=== PATIENT | female | born 1960 | race African-American/Black ===

== ENCOUNTER 2016-12-19 07:47 | Emergency (ER) | payer SELFPAY ==
--- NOTE | 2016-12-19 09:35 | RAD ---
Indication: Left shoulder injury. 3 views of left shoulder demonstrates no fracture. AC joint arthritis is noted. No other bone or joint abnormalities identified. IMPRESSION: AC joint arthritis without fracture.
[2016-12-19 10:04] VITALS: BP 139/98
--- NOTE | 2016-12-19 12:27 | UC ---
Cristian Bustillo Benjamin, scribed for Aby Todd MD on 12/19/16 at 0901 . Shoulder Pain HPI - HPI Summary HPI Summary: 56yo female presents with left shoulder injury on 12/17/16 afternoon trying to reach her left arm across to the right side while at work. Pt reports having pain since yesterday evening. Pt has difficulty moving her left shoulder due to pain. No p/d/w. No other joint pain c/o's. No neck pain. No sob / cp. No abd issues. - History of Current Complaint Chief Complaint: UCUpperExtremity Stated Complaint: SHOULDER COMPLAINT Time Seen by Provider: 12/19/16 08:45 Hx Obtained From: Patient Hx Last Menstrual Period: at least 3 yrs ago ?: No Onset/Duration: Lasting Days, Still Present Timing: Constant Severity Initially: Moderate Severity Currently: Moderate Location Of Pain: Is Discrete @ - left shoulder Character: Throbbing Aggravating Factor(s): Movement, Lifting, Extension, Internal Rotation, External Rotation Alleviating Factor(s): Rest Associated Signs And Symptoms: Positive: Negative Related History: Occupational Injury - at work - Allergies/Home Medications Allergies/Adverse Reactions: Allergies Allergy/AdvReac Type Severity Reaction Status Date / Time No Known Allergies Allergy Verified 12/19/16 08:05 Home Medications: Home Medications Bp Med 1 tab PO DAILY 12/19/16 [History] Water Pill 1 tab PO 12/19/16 [History] PMH/Surg Hx/FS Hx/Imm Hx Previously Healthy: Yes - see hpi Cardiovascular History: Hypertension Respiratory History: Bronchitis - Surgical History Surgical History: None - Family History Known Family History: Positive: Cardiac Disease, Hypertension, Diabetes - Social History Occupation: Employed Full-time Lives: With Family Alcohol Use: Occasionally Substance Use Type: None Smoking Status (MU): Light Every Day Tobacco Smoker Type: Cigarettes Amount Used/How Often: 1 per day Have You Smoked in the Last Year: Yes Review of Systems Constitutional: Other - SEE HPI Skin: Negative Eyes: Negative ENT: Negative Respiratory: Negative Cardiovascular: Negative Gastrointestinal: Negative Genitourinary: Negative Motor: Negative Neurovascular: Negative Musculoskeletal: Arthralgia - left shoulder pain, Decreased ROM - left shoulder to 30 degrees Neurological: Negative Psychological: Negative All Other Systems Reviewed And Are Negative: Yes Physical Exam Triage Information Reviewed: Yes Appearance: Well-Nourished, Pain Distress - with examination Vital Signs: Initial Vital Signs Temp 98.4 F 12/19/16 08:06 Pulse 92 12/19/16 08:06 Resp 18 12/19/16 08:06 BP 149/97 12/19/16 08:06 Pulse Ox 99 12/19/16 08:06 Vital Signs Reviewed: Yes Eye Exam: Normal ENT Exam: Normal Dental Exam: Normal Neck: Positive: Supple, Nontender, No Lymphadenopathy Respiratory: Positive: Lungs clear - No tachypnea, no dyspnea, No respiratory distress Cardiovascular: Positive: RRR, Pulses Normal, Brisk Capillary Refill Abdomen Description: Positive: Nontender, No Organomegaly, Soft Bowel Sounds: Positive: Present Musculoskeletal: Positive: ROM Limited @ - Left shoulder ROM limited to 30 degrees., Other: - tenderness at left anterior shoulder Straightens elbow. Distal pulses good. + distal sens present. + ax n sens present.. Negative: ROM Intact Neurological Exam: Normal Neurological: Positive: Other: - Left Axilla nerve sensation is present. Psychological Exam: Normal Psychological: Positive: Age Appropriate Behavior Skin Exam: Normal Skin: Negative: rashes Diagnostics - Radiology Right Shoulder XR Xray Interpretation: No Acute Changes - AC joint arthritis without any fracture Radiology Interpretation Completed By: Radiologist Shoulder Course/Dx - Course Course Of Treatment: Reviewed pt's medications list and allergies. High blood pressure noted. Advised pt for an ortho referral. Offered work note, pt will accept light duty note. Xray - + ac arthritis, c/w local of pain. As such, pain 2/2 sprain / strain is particularly severe. Reviewed recommendation for sling at least the next few days, jeronimo for comfort. Referral ortho. Questions answered to the best of my ability. Only wants minimal light duty or time off from work, at least 9-10 days is recommended for now. - Differential Dx/Diagnosis Provider Diagnoses: Acute Left shoulder (AC) strain, pain compromised in the setting of underlying AC arthritis Discharge - Discharge Plan Condition: Stable Disposition: HOME Prescriptions: Naproxen [Naproxen 500 mg] 500 mg PO Q8H PRN #30 tab PRN Reason: Pain Patient Education Materials: Osteoarthritis (ED), Shoulder Sprain (ED) Forms: *Work Release Referrals: Kelly Chopra MD [Primary Care Provider] - Carson Jarvis MD [Medical Doctor] - Additional Instructions: Please follow up with your primary care provider, per routine. Follow up with senior telecommunications specialist next week for re-evaluation. Seek medical attention for worse or new problems in the meantime. Sling as needed for comfort. The documentation as recorded by the Cristian hensley Benjamin accurately reflects the service I personally performed and the decisions made by me, Aby Todd MD.
== END 2016-12-19 10:19 | disposition home or self-care (01) ==
LOC: UCEAST 07:47
DX: S46.812A Strain of other muscles, fascia and tendons at shoulder and upper arm level, left arm, initial encounter (principal); X50.1XXA Overexertion from prolonged static or awkward postures, initial encounter; Y93.89 Activity, other specified; Y92.9 Unspecified place or not applicable; Y99.0 Civilian activity done for income or pay; M19.012 Primary osteoarthritis, left shoulder; I10 Essential (primary) hypertension; F17.210 Nicotine dependence, cigarettes, uncomplicated
CPT/HCPCS: 99212; G0463

== ENCOUNTER 2017-10-09 07:01 | Emergency (ER) | payer OTHER ==
[2017-10-09 07:11] VITALS: BP 131/83
--- NOTE | 2017-10-09 07:45 | ED ---
Respiratory - HPI Summary HPI Summary: 57 yo BF c/p cough with pleuritic CP and hoarse voice x 2 days, started with URI sx about 5 days prior to todays' sx. Denies f/c. - History of Current Complaint Chief Complaint: UCRespiratory Stated Complaint: MUCUS, COUGH Time Seen by Provider: 10/09/17 07:34 Hx Obtained From: Patient Onset/Duration: Sudden Onset Initial Severity: Moderate Current Severity: Moderate Pain Intensity: 8 Character: Cough (Nonproductive) Sputum Amount: Moderate - Allergy/Home Medications Allergies/Adverse Reactions: Allergies Allergy/AdvReac Type Severity Reaction Status Date / Time No Known Allergies Allergy Verified 10/09/17 07:11 Home Medications: Home Medications Amlodipine Besylate [Norvasc 5 mg tab] 5 mg PO DAILY 10/09/17 [History Confirmed 10/09/17] Valsartan/Hydrochlorothiazide [Valsartan-Hctz 160-25 mg Tab] 165 mg PO DAILY [History Confirmed 10/09/17] PMH/Surg Hx/FS Hx/Imm Hx Endocrine/Hematology History: Denies: Hx Diabetes, Hx Thyroid Disease Cardiovascular History: Reports: Hx Hypertension Denies: Hx Congestive Heart Failure, Hx Pacemaker/ICD, Other Cardiovascular Problems/Disorders Respiratory History: Denies: Hx Asthma, Hx Chronic Obstructive Pulmonary Disease (COPD), Other Respiratory Problems/Disorders GI History: Denies: Hx Ulcer - Cancer History Hx Chemotherapy: No Hx Radiation Therapy: No - Surgical History Surgery Procedure, Year, and Place: denies Infectious Disease History: Yes Infectious Disease History: Denies: Hx Clostridium Difficile, Hx Hepatitis, Hx Human Immunodeficiency Virus (HIV), Hx of Known/Suspected MRSA, Hx Shingles, Hx Tuberculosis, Hx Known/ Suspected VRE, Hx Known/Suspected VRSA, History Other Infectious Disease, Traveled Outside the [place] in Last 30 Days - Family History Known Family History: Positive: Cardiac Disease, Hypertension, Diabetes - Social History Alcohol Use: None Substance Use Type: Reports: None Smoking Status (MU): Light Every Day Tobacco Smoker Type: Cigarettes Amount Used/How Often: 1 per day Have You Smoked in the Last Year: Yes Review of Systems Constitutional: Negative Eyes: Negative Positive: Sore Throat Cardiovascular: Negative Positive: Cough Gastrointestinal: Negative Genitourinary: Negative Musculoskeletal: Negative Skin: Negative Psychological: Normal All Other Systems Reviewed And Are Negative: Yes Physical Exam Triage Information Reviewed: Yes Vital Signs On Initial Exam: Initial Vitals Temp Pulse Resp BP Pulse Ox 36.6 C 70 20 131/83 100 10/09/17 07:06 10/09/17 07:06 10/09/17 07:06 10/09/17 07:06 10/09/17 07:06 Vital Signs Reviewed: Yes Appearance: Positive: No Pain Distress Skin: Positive: Warm Head/Face: Positive: Normal Head/Face Inspection Eyes: Positive: Normal ENT: Positive: Normal ENT inspection Neck: Positive: Tenderness @ - anterior cervical LAD Respiratory/Lung Sounds: Positive: Rhonchi - with cough Cardiovascular: Positive: Normal, S1, S2 Musculoskeletal: Positive: Normal Neurological: Positive: Normal Diagnostics - Vital Signs Vital Signs Temp Pulse Resp BP Pulse Ox 10/09/17 07:06 36.6 C 70 20 131/83 100 - Laboratory Lab Statement: Any lab studies that have been ordered have been reviewed, and results considered in the medical decision making process. Disposition - Diagnoses Provider Diagnoses: Bronchitis, Laryngitis Discharge - Sign-Out/Discharge Documenting (check all that apply): Discharge/Admit/Transfer - Discharge Plan Condition: Stable Disposition: HOME Prescriptions: Azithromycin TAB* [Zithromax TAB (Z-BYRON) 250 mg #6 tabs] 2 tab PO .TODAY, THEN 1 DAILY #1 byron Guaifenesin/Dextromethorphan [Mucinex Dm ER 600-30 mg Tablet] 1 each PO BID 7 Days #14 tab.er.12h Patient Education Materials: Laryngitis (ED), Acute Bronchitis (ED) Forms: *Work Release Referrals: Kelly Chopra MD [Primary Care Provider] - - Billing Disposition and Condition Condition: STABLE Disposition: HOME
== END 2017-10-09 07:45 | disposition home or self-care (01) ==
LOC: UCEAST 07:01
DX: J40 Bronchitis, not specified as acute or chronic (principal); J04.0 Acute laryngitis; I10 Essential (primary) hypertension; F17.210 Nicotine dependence, cigarettes, uncomplicated; Z79.899 Other long term (current) drug therapy
CPT/HCPCS: 99212; G0463

== ENCOUNTER 2018-02-02 09:17 | Emergency (ER) | payer OTHER ==
[2018-02-02 09:39] VITALS: BP 117/73
--- NOTE | 2018-02-02 10:06 | UC ---
Lower Extremity/Ankle HPI - HPI Summary HPI Summary: 57-year-old female presents with onset of left knee pain that occurred while she was pushing a wheelchair at work up an incline yesterday. She thinks it was a twisting type injury. States she's been able to ambulate on the knee since the injury however yesterday when descending some stairs her knee actually gave out on her. Describes pain as a constant ache although becomes more sharp and intense with movement particularly flexion of the knee. Mild swelling to the medial aspect of the knee. Denies numbness or tingling. Took ibuprofen 400 mg this morning without relief. - History of Current Complaint Chief Complaint: UCLowerExtremity Stated Complaint: L KNEE INJURY Time Seen by Provider: 02/02/18 09:48 Hx Obtained From: Patient Hx Last Menstrual Period: at least 3 yrs ago Onset/Duration: Sudden Onset Severity Initially: Moderate Severity Currently: Moderate Pain Intensity: 8 Aggravating Factor(s): Ambulation, Other - Flexion of knee Alleviating Factor(s): Rest Able to Bear Weight: Yes Related History: Occupational Injury - Allergies/Home Medications Allergies/Adverse Reactions: Allergies Allergy/AdvReac Type Severity Reaction Status Date / Time No Known Allergies Allergy Verified 02/02/18 09:40 Home Medications: Home Medications Ibuprofen [Advil] 2 tab PO TID PRN 02/02/18 [History Confirmed 02/02/18] Losartan/Hydrochlorothiazide [Hyzaar 100/12.5 mg] 2 tab PO DAILY 02/02/18 [ History Confirmed 02/02/18] PMH/Surg Hx/FS Hx/Imm Hx Previously Healthy: Yes Cardiovascular History: Hypertension - Surgical History Surgical History: None Surgery Procedure, Year, and Place: denies - Family History Known Family History: Positive: Cardiac Disease, Hypertension, Diabetes - Social History Occupation: Employed Full-time Lives: With Family Alcohol Use: None Substance Use Type: None Smoking Status (MU): Light Every Day Tobacco Smoker Type: Cigarettes Amount Used/How Often: 1 per day Have You Smoked in the Last Year: Yes - Immunization History Most Recent Tetanus Shot: UTD Review of Systems Constitutional: Negative Skin: Negative Neurovascular: Negative Musculoskeletal: Arthralgia - Left knee, Decreased ROM - Left knee due to pain Neurological: Negative Is Patient Immunocompromised?: No All Other Systems Reviewed And Are Negative: Yes Physical Exam Triage Information Reviewed: Yes Appearance: Well-Appearing, No Pain Distress, Well-Nourished Vital Signs: Initial Vital Signs Temp 98 F 02/02/18 09:34 Pulse 71 02/02/18 09:34 Resp 18 02/02/18 09:34 BP 117/73 02/02/18 09:34 Pulse Ox 97 02/02/18 09:34 Vital Signs Reviewed: Yes Respiratory: Positive: Lungs clear, Normal breath sounds, No respiratory distress Cardiovascular: Positive: RRR, No Murmur, Pulses Normal, Brisk Capillary Refill Musculoskeletal: Positive: Strength Intact, ROM Limited @ - Left knee flexion d/ t pain, Edema @ - Medial aspect left knee, Other: - Tenderness over medial aspect of left knee. Positive valgus stress test. Neurological: Positive: Alert, Muscle Tone Normal, Other: - Sensation intact distally Skin Exam: Normal Diagnostics - Radiology No standard instances Xray Interpretation: No Acute Changes Radiology Interpretation Completed By: ED Physician - Preliminary reading by myself. No fracture or dislocation., Radiologist - Attending Doctor: Crys Haines ([id number]) Cone Trucker: Jorge L Ferguson ([id number]) Escrow Agent: SIMA (NUANCE) Report Date: 02/02/2018 09:53:00 Report Status: Final Begin of Report Content Patient Name: JOANN ANG Medical Record#: [id number] Ordering Physician: Tim Josue NP Acct.#: [id number] : 1960 Age: 57 Sex: F Location : [facility] Exam Date: 02/02/18952 ADM Status: REG ER Order Information: KNEE LEFT 4+ VWS Accession Number: [id number] CPT: 29097 INDICATION: Left knee pain. TECHNIQUE: 4 views of the left knee were obtained. FINDINGS: The bones are in normal alignment. No joint effusion or fracture is seen. Joint spaces appear maintained. IMPRESSION: NO EVIDENCE FOR FRACTURE. Lower Extremity Course/Dx - Differential Dx/Diagnosis Differential Diagnosis/HQI/PQRI: Sprain, Tendonitis Provider Diagnoses: Left knee sprain Discharge - Sign-Out/Discharge Documenting (check all that apply): Patient Departure All imaging exams completed and their final reports reviewed: Yes - Discharge Plan Condition: Stable Disposition: HOME Prescriptions: Naproxen [Naproxen 500 mg tab] 500 mg PO BID #30 tablet Patient Education Materials: Knee Pain (ED), Knee Immobilizer (ED) Forms: *Work Release Referrals: Kelly Chopra MD [Primary Care Provider] - Carson Clement MD [Medical Doctor] - 7 Days (Call for appointment.) Additional Instructions: The x-ray performed in the clinic today showed no evidence of fracture or dislocation. The pain is likely related to a sprain of the medial collateral ligament. Take naproxen 1 tablet every 12 hours with food for the next 5 days then you may take every 12 hours as needed. Wear the knee immobilizer that was provided to you in clinic today at all times. You may remove to bathe and sleep. You've been given a referral to the orthopedic surgeon, Dr. Clement, for follow- up care. He will need to call to make an appointment. - Billing Disposition and Condition Condition: STABLE Disposition: Home - Attestation Statements Provider Attestation: I was available for consult. This patient was seen by the MARYANN. The patient was not presented to, seen by, or examined by me. -Ted
--- NOTE | 2018-02-02 10:24 | RAD ---
INDICATION: Left knee pain. TECHNIQUE: 4 views of the left knee were obtained. FINDINGS: The bones are in normal alignment. No joint effusion or fracture is seen. Joint spaces appear maintained. IMPRESSION: NO EVIDENCE FOR FRACTURE.
== END 2018-02-02 10:46 | disposition home or self-care (01) ==
LOC: UCEAST 09:17
DX: S83.92XA Sprain of unspecified site of left knee, initial encounter (principal); X50.1XXA Overexertion from prolonged static or awkward postures, initial encounter; Y92.9 Unspecified place or not applicable; I10 Essential (primary) hypertension; Z79.899 Other long term (current) drug therapy; F17.210 Nicotine dependence, cigarettes, uncomplicated
CPT/HCPCS: 99213; G0463